=== PATIENT | male | born 1960 | race Two or more races ===

== ENCOUNTER 2021-05-24 22:39 | Emergency (ER) | payer SELFPAY ==
[~2021-05-24] VITALS: Ht 167.6 cm; Wt 77.3 kg
[2021-05-25] MEDS ORDERED: ACETAMINOPHEN 500 MG TABLET PO ONE (00:15)
[2021-05-25 00:36] VITALS: BP 103/71
== END 2021-05-25 00:38 | disposition home or self-care (01) ==
LOC: EMS 22:42
DX: U07.1 COVID-19 (principal); M79.10 Myalgia, unspecified site
CPT/HCPCS: 99283; U0003